=== PATIENT | female | born 1985 | race Caucasian/White ===

== ENCOUNTER 2016-11-21 11:23 | Emergency (ER) | payer SELFPAY ==
[~2016-11-21] VITALS: Ht 157.5 cm; Wt 62.7 kg
[2016-11-21 11:28] VITALS: BP 125/97
--- NOTE | 2016-11-21 12:24 | NUR ---
Patient ambulated to bed 05.
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
[2016-11-21 13:14] LABS: BASOPHILS # (AUTO) 0.2 K/uL (0.00-0.22); EOSINOPHILS # (AUTO) 0.1 K/uL (0-0.4); EOSINOPHILS % (AUTO) 1.7 % (0.0-4.0); HEMATOCRIT 44.2 % (36-48); HEMOGLOBIN 14.6 g/dL (12.0-16.0); LYMPHOCYTES # (AUTO) 2.3 K/uL (2.5-16.5); LYMPHOCYTES % (AUTO) 28.8 % (20.5-51.1); MEAN CORPUSCULAR HEMOGLOBIN 28 pg (27-31); MEAN CORPUSCULAR HGB CONC 33 g/dL (33-37); MEAN CORPUSCULAR VOLUME 85 fL (80-94); MONOCYTES # (AUTO) 0.6 K/uL (0.8-1.0); MONOCYTES % (AUTO) 7.6 % (1.7-9.3); NEUTROPHILS # (AUTO) 4.8 K/uL (1.8-7.7); NEUTROPHILS % (AUTO) 59.9 % (42.2-75.2); PLATELET COUNT (AUTO) 301 K/uL (140-450); RED BLOOD CELL COUNT(AUTO) 5.22 MIL/uL (4.20-5.40); RED CELL DISTRIBUTION WIDTH 13.4 % (11.6-13.7)
[2016-11-21 13:24] LABS: ANION GAP 13.5 (8-16); CARBON DIOXIDE 25.4 mmol/L (21-32); CHLORIDE 105 mmol/L (98-107); POTASSIUM 3.9 mmol/L (3.5-5.1); SODIUM SERUM 140 mmol/L (136-145)
[2016-11-21 13:37] LABS: BARBITURATE, URINE NEG. ng/ml (NEG <=200); BENZODIAZEPINE, URINE NEG. ng/mL (NEG <=200); CANNABINOID, URINE NEG. ng/mL (NEG <=50); COCAINE, URINE NEG. ng/mL (NEG <=300); OPIATE, URINE NEG. ng/mL (NEG <=2000); PHENCYCLIDINE SCREEN,URINE NEG. ng/mL (NEG <=25)
[2016-11-21 13:47] LABS: CREATININE 0.8 mg/dL (0.6-1.3); GFR ARICAN-AMERICAN 107 mL/min (>90); GLUCOSE 102 mg/dL (74-106); UREA NITROGEN, BLOOD 8 mg/dL (7-18)
[2016-11-21 13:50] LABS: SALICYLATE < 2.8 mg/dL (2.8-20.0)
[2016-11-21] MEDS ORDERED: ACETAMINOPHEN EXTRA STRENGTH 500 MG TAB PO ONE (13:50)
[2016-11-21 13:51] LABS: ALBUMIN 4.1 g/dL (3.4-5.0); ASPARTATE AMINOTRANSFERASE 78 U/L (15-37); TOTAL BILIRUBIN 0.9 mg/dL (0.0-1.0)
--- NOTE | 2016-11-21 14:00 | NUR ---
PATIENT AWAITING POLICE DEPARTMENT. NO S/S OF ACUTE DISTRESS NOTED. FAMILY AT BEDSIDE.
[2016-11-21 14:04] LABS: ACETAMINOPHEN < 0.5 ug/ml (10-30)
[2016-11-21 15:16] VITALS: BP 138/85
--- NOTE | 2016-11-21 15:18 | NUR ---
Patient discharged with v/s stable. Written and verbal after care instructions given and explained. Patient verbalized understanding. Ambulatory with steady gait. All questions addressed prior to discharge. Advised to follow up with PMD.
--- NOTE | 2016-11-21 15:20 | NUR ---
PATIENT WAITING FOR POLICE DEPARTMENT IN WAITING ROOM FOR REPORT DISCHARGE FROM BED.
== END 2016-11-21 15:18 | disposition home or self-care (01) ==
LOC: MED 11:23
DX: R07.89 Other chest pain (principal); T43.625A Adverse effect of amphetamines, initial encounter; Y92.89 Other specified places as the place of occurrence of the external cause
CPT/HCPCS: 36415; 80053; 80305; 85025; 99284; G0480; G0482